=== PATIENT | female | born 1965 | race Caucasian/White ===

== ENCOUNTER 2017-03-05 12:20 | Day surgery (SDC) | payer OTHER ==
[~2017-03-05] VITALS: Ht 152.4 cm; Wt 63.5 kg
[~2017-03-05 12:20] MED LIST: CYCL-319; GABA300C16; NAPR-260
[2017-03-05 13:00] VITALS: Ht 152.4 cm; Wt 63.5 kg
[2017-03-05 14:24] VITALS: BP 111/72; PULSE 80; RESP 18
--- NOTE | 2017-03-05 14:44 | OPPN ---
Date/Time of Note Date/Time of Note DATE: 03/05/17 TIME: 14:43 Operative Report Preoperative Diagnosis Screening Postoperative Diagnosis Small sigmoid colon polyp was removed Internal hemorrhoids Operation/Procedure Performed Colonoscopy and biopsy Surgeon see signature line prosthetic assistant None Anesthesia: moderate sedation Estimated blood loss: none Transfusion Required none Specimen Colon polyp biopsy Random colon biopsies Grafts/Implants none Complications none MARTHA QUEZADA MD Mar 05, 2017 14:44
[2017-03-05] MEDS ORDERED: MIDAZOLAM 1 MG/ML 2 ML INJ ONE ×2 (14:49)
[2017-03-05] MEDS ORDERED: FENTAnyl 50 MCG/ML VIAL ONE (14:50)
[2017-03-05 15:10] VITALS: BP 107/76; RESP 21
--- NOTE | 2017-03-05 15:54 | GILP ---
DATE OF PROCEDURE: NAME OF PROCEDURES: Colonoscopy and biopsy. SURGEON: Martha Ramirez MD PREOPERATIVE DIAGNOSIS: Screening colonoscopy. POSTOPERATIVE DIAGNOSES 1. Colonoscopy all the way to the cecum. 2. Small sigmoid colon polyp was removed using the biopsy forceps. 3. Random biopsies were taken to rule out microscopic colitis. 4. Internal hemorrhoids. INDICATION FOR THE PROCEDURE: Ms. Radha Cho is a 51-year-old female patient who was sched uled for screening colonoscopy. The patient also had episodes of diarrhea. The procedure and possible complications are well explained to the patient, she understood and conse nted to the procedure. DESCRIPTION OF PROCEDURE: Under the influence of fentanyl and Versed, the colonoscope was carefully introduced in the rectum and under direct vision it was advanced all the way to the cecum. FINDINGS: The patient had a small sigmoid colon polyp and it was removed using the biopsy forceps. The patient had internal hemorrhoids. Random biopsies were taken to rule out microscopic colitis. She tolerated the procedure very well and there was no complication from the procedure. At the end of the procedures, she was awake with stable vital signs and she was discharged home to the care of her family. IMPRESSION: 1. Colonoscopy all the way to the cecum. 2. Small sigmoid colon polyp was removed using the biopsy forceps. 3. Random biopsies were taken to rule out microscopic colitis. 4. Internal hemorrhoids. PLAN: 1. Await histopathology reports. 2. Next screening colonoscopy in 10 years. Dictated By: MARTHA NICOLE/GABE Conf#: [id number] DID#: [id number]
== END 2017-03-05 17:44 | disposition home or self-care (01) ==
LOC: GIL 12:20
PROVIDERS: ATTEND Internal Medicine Gastroenterology
DX: Z12.11 Encounter for screening for malignant neoplasm of colon (principal)
CPT/HCPCS: 45380; 88305; J2250; J3010; Z7610

== ENCOUNTER 2017-05-30 10:33 | Day surgery (SDC) | END 2017-05-30 17:46 | disposition home or self-care (01) ==

== ENCOUNTER 2017-11-27 05:53 | Day surgery (SDC) | END 2017-11-27 10:03 | disposition home or self-care (01) ==

== ENCOUNTER → 2018-01-27 | Outpatient (CLI) | END | disposition home or self-care (01) ==

== ENCOUNTER 2018-11-13 06:40 | Inpatient (IN) | payer OTHER ==
[2018-11-13] VITALS (29 sets, daily range): BP systolic 92–134; BP diastolic 50–90; PULSE 66–94; RESP 8–28
[~2018-11-13] VITALS: Ht 152.4 cm; Wt 64.0 kg
--- NOTE | 2018-11-13 05:25 | HPN ---
Date/Time of Note Date/Time of Note DATE: 11/13/18 TIME: 05:25 Interval H&P Admission Note Pt. seen H&P reviewed: No system changes DEVANTE COLLADO MD Nov 13, 2018 05:25
--- NOTE | 2018-11-13 05:28 | OPR ---
Date/Time of Note Date/Time of Note DATE: 11/13/18 TIME: 05:25 Operative Report Procedure Date: Nov 13, 2018 Preoperative Diagnosis Left shoulder rotator cuff tear arthropathy Postoperative Diagnosis 1. Left shoulder secondary arthritis 2. Left shoulder acromioclavicular joint arthritis 3. Left shoulder massive, unrepairable rotator cuff tear Operation/Procedure Performed 1. Left open reverse total shoulder 2. Left open distal clavicular excision 3. Left shoulder injection of PRP solution Surgeon see signature line Donor Processor Mono Kinsey MD Anesthesia Type: general Estimated Blood Loss: 100 - 150 ml's Transfusion none Specimen None Grafts/Implants See body of op note Complications none Pt Condition Post Procedure: stable Disposition: PACU Procedure Description PUBLIC WORKS TECHNICIAN SURGEON: Mono Kinsey MD was asked to be present for this case at my request. Assistance was necessary as a result of the highly technical nature of this operation. When performing an open total shoulder replacement, it is critical to have a trained assistant men's soccer coach who is an expert in handling the extremity and assisting the surgeon in tasks such as suture management and knot-tying techniques as well as implants. This assistance cannot be performed by a nutrition technician, as it is considered an integral part of the procedure and the assistant men's soccer coach should be compensated for his time. PROCEDURE IN DETAIL: Following the administration of general anesthesia supplemented with a peripheral nerve block for postoperative pain control, the patient was examined under anesthesia. This revealed severe stiffness and significant glenohumeral as well as subacromial crepitus. Motion was markedly limited to less than 85 degrees of abduction with 60 degrees of external rotation. The antecubital fossa was then prepped and 60 cc of blood were aspirated. The blood was then subsequently given to the field representative from the company to prepare the PRP solution. The patient was then placed in the beach chair position. Sterile prep and drape was then undertaken of the left upper extremity. An extended deltopectoral incision was then carried through the interval exposing the conjoined tendon and retracting it medially. The superior aspect of the joint was then evaluated. Significant osteophytes were noted in the acromioclavicular joint. The acromioclavicular joint capsule was then entered and the distal clavicle skeletonized for a distance of 10 mm. Severe arthritic changes were noted. An osteotome was then used to resect 10 mm of the distal clavicle. A good decompression was confirmed. The AC joint was irrigated and closed using a #2 interrupted suture. The subscapularis was noted to be partially disrupted superiorly. Very severe arthritic changes were noted with very large peripheral osteophytes and a flattened humeral head. The superior rotator cuff was torn and retracted. The biceps tendon was noted to be previously resected. A humeral head osteotomy was then created in the appropriate degree of version and inclination. The humerus was retracted and the glenoid was exposed. Peripheral osteophytes were removed and a complete capsulectomy performed. The central canal of the glenoid was then entered and prepared for a standard Depuy baseplate. A standard Depuy baseplate was then applied with four peripheral screws and solid fixation. A 38 mm glenosphere, was then applied, with solid fixation. The humerus was then reamed and prepared for a 8 mm humeral component with a standard metaphyseal component, with a 3mm liner. The humeral canal was irrigated and the PRP solution was implanted within the humeral canal. The actual components were implanted with solid fixation. The arm was taken through full range of motion with no evident instability. The joint was then thoroughly irrigated, the deep tissues were approximated using #1 suture followed by closure of the deep layer using 2-0 Monocryl. The skin was closed using 4-0 Monocryl suture, and a Prenio dressing. An Ultrasling was then applied. The patient was awakened and transported to the recovery room in stable condition. Estimated blood loss for this procedure was 150 cc. Radiographs will be obtained in the recovery room. DEVANTE COLLADO MD Nov 13, 2018 05:28
[~2018-11-13 06:40] MED LIST changes: +BUPIVACAINE 0.5% (SDV) 30 ML, morphine SULFATE (PF) 8 MG, EPINEPHrine 0.3 MG, KETOROLAC... IRR SCH; +CEFAZOLIN 2 GM/50 ML (PMX) 50 ML IVPB ONE; -CYCL-319; +CYCLOBENZAPRINE; +DEXAMETHASONE 1 MG TAB PO ONE; +DOXY100T21 PO; -GABA300C16; +GABA300C16 PO; +GABAPENTIN 300 MG CAP PO ONE; +MIRTAZAPINE; -NAPR-260; +OMEPRAZOLE; +TRAM50TA PO; +TRAMADOL; +TRANEXAMIC ACID 1GM/100ML(PMX) 100 ML IVPB ONE
[2018-11-13] MEDS ORDERED: MIDAZOLAM 1 MG/ML 2 ML INJ ONE (07:50)
[2018-11-13] MEDS ORDERED: ROPIVACAINE 0.5 % 30 ML VIAL ONE (07:50)
[2018-11-13] MEDS ORDERED: FENTAnyl 50 MCG/ML VIAL ONE (07:51)
--- NOTE | 2018-11-13 09:18 | PREAC ---
Date/Time of Note Date/Time of Note DATE: 11/13/18 TIME: 09:16 Anesthesia Eval and Record Evaluation Time Pre-Procedure Interview DATE: 11/13/18 TIME: 09:16 Age 53 Sex female NPO: 8 hrs Preoperative diagnosis left shoulder arthritis, rotator tear Planned procedure left reverse total shoulder Past Medical History Past Medical History: Includes Musculoskeletal: Osteoarthritis Surgery & Anesthesia Issues No known issue Meds Anticoagulation: No Beta Isaiah within 24 hr: No Reason Beta Isaiah not given: Pt. not on B-Isaiah Reported Medications Doxycycline Monohydrate* (Doxycycline Monohydrate*) 100 Mg Tablet, 100 MG PO BID, TAB STARTED 11-10-18 FOR 5 DAYS 11/13/18 Gabapentin* (Gabapentin*) 300 Mg Capsule, 300 MG PO BID, #60 CAP 11/13/18 Tramadol Hcl* (Ultram*) 50 Mg Tablet, 50 MG PO Q6H PRN for PAIN, TAB 11/13/18 Discontinued Reported Medications [Cyclobenzaprine] No Conflict Check 11/27/17 [Omeprazole] No Conflict Check 11/27/17 [Tramadol] No Conflict Check 11/27/17 [Mirtazapine] No Conflict Check 11/27/17 Current Medications Bupivacaine HCl/ Morphine Sulfate/ Epinephrine/ Ketorolac Tromethamine/ Clonidine/Sodium Chloride/ Vancomycin HCl INTRA-OP IRR ; Start 11/13/18 at 05:30; Stop 11/13/18 at 13:00 Lactated Ringer's 1,000 ml @ 0 mls/hr Q0M IV ; Start 11/13/18 at 16:00; Stop 11/13/18 at 18:00 Meds reviewed: Yes Allergies Coded Allergies: No Known Drug Allergies (Verified Allergy, Unknown, 11/13/18) Allergies Reviewed: Yes Labs/Studies Labs Reviewed: Reviewed by anesthesiologist test: Negative Pre-procedure Exam Last vitals Vital Signs Date Temp Pulse Resp B/P (MAP) Pulse Ox O2 O2 Flow FiO2 Time Delivery Rate 11/13/18 97.4 78 16 122/79 99 Room Air 08:07 (93) Airway: Adequate mouth opening, Adequate thyromental dist Mallampati: Mallampati I Teeth: Normal Lung: Normal Heart: Normal ASA Physical Status ASA physical status: 2 Emergency: None Planned Anesthetic General/MAC: ETT Nerve block: Brachial plexus (left) Planned Pain Management Single shot nerve block, Parenteral pain med Pre-operative Attestations Prior to commencing anesthesia and surgery, the patient was re-evaluated, there was verification of: *The patient's identity *The results of appropriate recent lab work and preoperative vital signs *The above evaluation not changing prior to induction *Anesthetic plan, risk benefits, alternative and complications discussed with patient/family; questions answered; patient/family understands, accepts and wishes to proceed. JALYN RICE Nov 13, 2018 09:18
[2018-11-13] MEDS ORDERED: POLYMYXIN/BACITRACIN 1L IRRIG ONE (09:58)
[2018-11-13] MEDS ORDERED: CA CHLORIDE (GM) 10% 10 ML INJ ONE (09:58)
[2018-11-13] MEDS ORDERED: THROMBIN 20,000 UNIT VIAL ONE (09:58)
[2018-11-13] MEDS ORDERED: ROCURONIUM 50 MG INJ ONE (10:00)
[2018-11-13] MEDS ORDERED: LIDOCAINE 2% (SDV) 5 ML INJ ONE (10:00)
[2018-11-13] MEDS ORDERED: PROPOFOL 20 ML ONE (10:00)
[2018-11-13] MEDS ORDERED: DEXAMETHASONE 4 MG/ML 5 ML INJ ONE (10:00)
[2018-11-13] MEDS ORDERED: ONDANSETRON 4 MG INJ ONE (10:01)
[2018-11-13] MEDS ORDERED: TRANEXAMIC ACID 1GM/100ML(PMX) 200 ML ONE (10:34)
--- NOTE | 2018-11-13 11:13 | PDOCDIS ---
Discharge Instructions DIAGNOSIS Discharge Diagnosis Rotator cuff tear arthropathy CONDITION [id number] Patient Condition: [id number] Good HOME CARE INSTRUCTIONS: [id number] Diet Instructions: [id number] Regular ACTIVITY: [id number] Activity Restrictions: [id number] Rest between Activity Keep Limb Elevated [id number] Bathing Restrictions: [id number] Shower FOLLOW UP/APPOINTMENTS Follow-up Plan 2 weeks in the office SCHOOL/WORK RELEASE May return to School/Work with: With Restrictions School/Work Release Comment: 5 pound tabletop usage for 6 weeks DEVANTE COLLADO MD Nov 13, 2018 11:13
[2018-11-13] MEDS ORDERED: NEOSTIGMINE 3 MG/3 ML SYRINGE ONE (11:14)
[2018-11-13] MEDS ORDERED: GLYCOPYRROLATE 0.4 MG INJ ONE (11:15)
[2018-11-13] MEDS ORDERED: KETOROLAC 30 MG INJ ONE (11:26)
[2018-11-13] MEDS ORDERED: NACL 0.9% 3 ML SYG IV SCH (11:30)
[2018-11-13] MEDS ORDERED: oxyCODONE 5 MG TAB PO PRN ×2 (11:30)
[2018-11-13] MEDS ORDERED: KETOROLAC 15 MG INJ IV PRN (11:30)
[2018-11-13] MEDS ORDERED: TRANEXAMIC ACID 1GM/100ML(PMX) 100 ML IVPB ONE (11:30)
[2018-11-13] MEDS ORDERED: DIPHENHYDRAMINE 50 MG INJ IV PRN ×2 (11:30→12:00)
[2018-11-13] MEDS ORDERED: MAGNESIUM HYDROXIDE 30ML CUP PO PRN (11:30)
[2018-11-13] MEDS ORDERED: LOPERAMIDE 2 MG CAP PO PRN (11:30)
[2018-11-13] MEDS ORDERED: ONDANSETRON 4 MG INJ IV PRN ×2 (11:30→12:00)
[2018-11-13] MEDS ORDERED: ZOLPIDEM 5 MG TAB PO PRN (11:30)
[2018-11-13] MEDS ORDERED: HYDROmorphONE 1 MG/ML SYG IV PRN (11:30)
--- NOTE | 2018-11-13 11:41 | PAC ---
Date/Time of Note Date/Time of Note DATE: 11/13/18 TIME: 11:41 Post-Anesthesia Notes Post-Anesthesia Note Last documented vital signs Vital Signs Date Temp Pulse Resp B/P (MAP) Pulse Ox O2 O2 Flow FiO2 Time Delivery Rate 11/13/18 97.4 78 16 122/79 99 Room Air 1141 (93) Activity: WNL Respiratory function: WNL Cardiovascular function: WNL Mental status: Baseline Pain reasonably controlled: Yes Hydration appropriate: Yes Nausea/Vomiting absent: Yes JALYN RICE Nov 13, 2018 11:41
[2018-11-13] MEDS: CEFAZOLIN 1 GM/50 ML (PMX) 50 ML IVPB SCH ×2 (11:55→20:19)
[2018-11-13] MEDS ORDERED: OXYCODONE/ACETAMINOPHEN (5/325) TAB PO PRN ×2 (12:00)
[2018-11-13] MEDS ORDERED: HYDROmorphONE 1 MG/5 ML IV SYRINGE IV PRN ×3 (12:00)
[2018-11-13] MEDS ORDERED: FENTAnyl 50 MCG/ML VIAL IV PRN ×2 (12:00)
[2018-11-13] MEDS ORDERED: ALBUTEROL 0.083% (NEB) 2.5 MG/3 ML AMP HHN PRN (12:00)
[2018-11-13] MEDS ORDERED: MIDAZOLAM 1 MG/ML 2 ML INJ IV PRN (12:00)
[2018-11-13] MEDS ORDERED: KETOROLAC 30 MG INJ IV PRN (12:00)
[2018-11-13] MEDS ORDERED: hydrALAzine 20 MG INJ IV PRN (12:00)
[2018-11-13] MEDS ORDERED: EPHEDrine 25 MG/5 ML SYG IV PRN (12:00)
[2018-11-13] MEDS ORDERED: LABETALOL HCL 20MG INJ IV PRN (12:00)
[2018-11-13] MEDS ORDERED: MEPERIDINE 25 MG INJ IV PRN (12:00)
[2018-11-13] MEDS: FENTAnyl 50 MCG/ML VIAL IV PRN ×2 (12:02→12:52)
[2018-11-13] MEDS: ACETAMINOPHEN 500 MG TAB PO SCH ×3 (14:32→22:59)
[2018-11-13] MEDS: DEXAMETHASONE 2 MG TAB PO SCH ×3 (14:32→22:59)
[2018-11-13] MEDS ORDERED: LACTATED RINGER'S 1,000 ML IV SCH (16:00)
[2018-11-13] MEDS: SENNA/DOCUSATE NA (8.6MG/50MG) TAB PO SCH (19:54)
[2018-11-13] MEDS ORDERED: GABAPENTIN 300 MG CAP PO SCH (21:00)
[2018-11-14] MEDS: CEFAZOLIN 1 GM/50 ML (PMX) 50 ML IVPB SCH (04:05)
--- NOTE | 2018-11-14 05:35 | PN ---
Date/Time of Note Date/Time of Note DATE: 11/14/18 TIME: 05:35 Subjective Awake and alert with no complaints Objective Vitals Vital Signs Date Temp Pulse Resp B/P (MAP) Pulse Ox O2 O2 Flow FiO2 Time Delivery Rate 11/13/18 98.4 79 20 92/50 (64) 95 Room Air 23:20 11/13/18 2.0 15:30 Intake and Output 11/13/18 11/13/18 11/14/18 1515:00 23:00 07:00 IntakeIntake Total 890 ml 1020 ml OutputOutput Total 60 ml 200 ml BalanceBalance 830 ml 820 ml Wound clean and dry. Neurologically intact. No signs of DVT. Medications Medications Current Medications Senna/Docusate Sodium (Senokot-S) 1 tab BID PO ; Start 11/13/18 at 21:00 Simethicone (Mylicon) 80 mg TID PRN PO .GAS; Start 11/13/18 at 11:30 Magnesium Hydroxide (Milk Of Mag) 30 ml BID PRN PO .CONSTIPATION Last administered on 11/13/18at 20:19; Admin Dose 30 ML; Start 11/13/18 at 11:30 Loperamide HCl (Imodium Cap) 2 mg Q6H PRN PO .DIARRHEA; Start 11/13/18 at 11:30 Dexamethasone (Decadron) 2 mg Q6 PO Last administered on 11/13/18at 22:59; Admin Dose 2 MG; Start 11/13/18 at 12:00; Stop 11/14/18 at 06:01 Gabapentin (Neurontin) 300 mg HS PO Last administered on 11/13/18at 20:19; Admin Dose 300 MG; Start 11/13/18 at 21:00 Acetaminophen (Tylenol Tab) 500 mg Q6 PO Last administered on 11/13/18at 22:59; Admin Dose 500 MG; Start 11/13/18 at 12:00 Oxycodone HCl (Roxicodone) 15 mg Q4H PRN PO .PAIN; Start 11/13/18 at 11:30 Oxycodone HCl (Roxicodone) 10 mg Q4H PRN PO .PAIN; Start 11/13/18 at 11:30 Oxycodone HCl (Roxicodone) 5 mg Q4H PRN PO .PAIN; Start 11/13/18 at 11:30 Hydromorphone HCl (Dilaudid) 1 mg Q4H PRN IV .BREAKTHROUGH PAIN; Start 11/13/18 at 11:30 Ketorolac Tromethamine (Toradol) 15 mg Q6H PRN IV .PAIN; Start 11/13/18 at 1 1:30 Ondansetron HCl (Zofran Inj) 4 mg Q6H PRN IV NAUSEA/VOMITING Last administered on 11/13/18at 20:19; Admin Dose 4 MG; Start 11/13/18 at 11:30 Diphenhydramine HCl (Benadryl) 25 mg Q6H PRN IV .PRURITUS; Start 11/13/18 at 11:30 Zolpidem Tartrate (Ambien) 10 mg HS PRN PO .INSOMNIA Last administered on 11/13/18at 23:00; Admin Dose 10 MG; Start 11/13/18 at 11:30 IV Flush (NS 3 ml) 3 ml per protocol IV Last administered on 11/14/18at 04:07; Admin Dose 3 ML; Start 11/13/18 at 11:30 VTE Prophylaxis Risk score (from Nsg)>0 risk: 3 SCD applied (from Nsg): Yes Lines/Catheters IV Catheter Type: Saline Lock Zuñiga in Place: No Assessment/Plan Assessment/Plan Assessment: Status post total shoulder replacement Plan: Begin PT this morning discharge after DEVANTE COLLADO MD Nov 14, 2018 05:35
--- NOTE | 2018-11-14 05:36 | DS ---
Date/Time of Note Date/Time of Note DATE: 11/14/18 TIME: 05:35 Discharge Summary Admission/Discharge Info Admit Date/Time Nov 13, 2018 at 06:40 Discharge Date/Time 11/14/2018 Discharge Diagnosis Rotator cuff tear arthropathy Patient Condition: Good Hospital Course Patient was admitted and underwent uncomplicated procedure. Postop day 1 disc harge after OT evaluated her and showed her exercises. Follow-up in 2 weeks. Home Meds Reported Medications Doxycycline Monohydrate* (Doxycycline Monohydrate*) 100 Mg Tablet, 100 MG PO BID, TAB STARTED 11-10-18 FOR 5 DAYS 11/13/18 Gabapentin* (Gabapentin*) 300 Mg Capsule, 300 MG PO BID, #60 CAP 11/13/18 Tramadol Hcl* (Ultram*) 50 Mg Tablet, 50 MG PO Q6H PRN for PAIN, TAB 11/13/18 Discontinued Reported Medications [Cyclobenzaprine] No Conflict Check 11/27/17 [Omeprazole] No Conflict Check 11/27/17 [Tramadol] No Conflict Check 11/27/17 [Mirtazapine] No Conflict Check 11/27/17 Follow-up Plan 2 weeks in the office Primary Care Provider Not On Staff Doctor DEVANTE COLLADO MD Nov 14, 2018 05:36
[2018-11-14] MEDS: ACETAMINOPHEN 500 MG TAB PO SCH ×2 (07:36→12:51)
[2018-11-14] MEDS: DEXAMETHASONE 2 MG TAB PO SCH (07:36)
[2018-11-14 07:42] VITALS: BP 113/69; PULSE 85; RESP 20
[2018-11-14] MEDS: SENNA/DOCUSATE NA (8.6MG/50MG) TAB PO SCH (08:01)
[2018-11-14] MEDS: oxyCODONE 5 MG TAB PO PRN ×2 (08:13→12:55)
== END 2018-11-14 14:05 | disposition home or self-care (01) | DRG 483 ==
LOC: REC 06:40 → MS1 13:25
PROVIDERS: ADMIT Orthopaedic Surgery; ATTEND Orthopaedic Surgery
PROC: 0PBB0ZZ Excision of Left Clavicle, Open Approach (ICD-10-PCS; 2018-11-13)
PROC: 0RRK00Z Replacement of Left Shoulder Joint with Reverse Ball and Socket Synthetic Substitute, Open Approach (ICD-10-PCS; principal; 2018-11-13 09:30)
DX: M19.212 Secondary osteoarthritis, left shoulder (principal); M75.102 Unspecified rotator cuff tear or rupture of left shoulder, not specified as traumatic; M19.012 Primary osteoarthritis, left shoulder
CPT/HCPCS: 73030; 86999; 88304; 88311; 97161; C1776; J0171; J0690; J0735; J1100; J1170; J1885; J2250; J2274; J2405; J2710; J2795; J3010; J3370